=== PATIENT | male | born 1965 | race Caucasian/White ===

== ENCOUNTER 2018-12-01 12:57 | Emergency (ER) | payer MEDICAID ==
[~2018-12-01] VITALS: Wt 70.0 kg
[~2018-12-01 12:57] MED LIST: ASPI81TA52 PO; ATOR-2 PO; AZIT250T PO; BENA40TA56 PO; BENZ-6 PO; CARV25TA79 PO; EZET10TA31 PO; FINA5TAB4 PO; GABA300C16 PO; IBUP800T48 PO; INSU100I27 SQ; METF100010 PO; OMEG-135 PO
[2018-12-01] MEDS ORDERED: morphine 4 MG/ML VIAL IV STA (13:13)
[2018-12-01] MEDS ORDERED: ASPIRIN 325 MG TAB PO STA (13:13)
[2018-12-01] MEDS ORDERED: ONDANSETRON 4 MG INJ IV STA (13:13)
[2018-12-01] MEDS ORDERED: IPRATROPIUM (NEB) 0.5 MG/2.5 ML AMP NEB STA (13:14)
[2018-12-01] MEDS ORDERED: ALBUTEROL 0.083% (NEB) 2.5 MG/3 ML AMP NEB STA (13:14)
--- NOTE | 2018-12-01 13:31 | ERD ---
ER Documentation Chief Complaint Chief Complaint cough and congestion and chest wall pain with blood sugar read hi HPI This is a 53-year-old male that presented to the emergency department complaining of a productive cough, sneezing, pleuritic chest pain for the past 2 weeks. The patient went to an urgent care clinic today for evaluation. The patient has a history of insulin-dependent diabetes mellitus. He states his been compliant with his medications. When he arrived to the clinic the phone 911 given that he complained of chest pain. He states he has no chest pressure that radiates to the neck arm back or jaw. The chest pain is worse when coughing. He denies any recent travel or prolonged immobilization. He indica jo ann last night he had a tactile fever with shaking and chills. He denies any recent hospitalizations. He has no shortness of breath at rest or exertion. He denies any polyuria or polydipsia. EMS indicated the patient's Accu-Chek was 500. They obtained a 12-lead EKG tracing in route that showed ventricular pacing. ROS All systems reviewed and are negative except as per history of present illness. Medications Home Meds Active Scripts Ibuprofen* (Motrin*) 800 Mg Tab, 800 MG PO Q6H PRN for PAIN AND OR ELEVATED TEMP, #30 TAB Prov:CASSIA CRAFT MD 12/01/18 Benzonatate* (Tessalon Perle*) 100 Mg Capsule, 100 MG PO Q8H PRN for COUGH, #20 CAP Prov:CASSIA CRAFT MD 12/01/18 Azithromycin* (Zithromax*) 250 Mg Tablet, 250 MG PO .MichellePACK DIRECTED, #6 TAB TAKE 500 MG (2 TABS) THE FIRST DAY THEN 250 MG (1 TAB) DAYS 2-5 Prov:CASSIA CRAFT MD 12/01/18 Reported Medications Willows-3 Fatty Acids/Fish Oil (Fish Oil 1,000 mg Capsule) 1 Each Capsule, 1 EACH PO BID, CAP 12/01/18 Finasteride* (Finasteride*) 5 Mg Tablet, 5 MG PO DAILY, TAB 12/01/18 Gabapentin* (Gabapentin*) 300 Mg Capsule, 300 MG PO BID, #60 CAP 12/01/18 Benazepril Hcl* (Benazepril Hcl*) 40 Mg Tablet, 40 MG PO DAILY, #30 TAB 12/01/18 Carvedilol* (Carvedilol*) 25 Mg Tablet, 25 MG PO BID, #60 TAB 12/01/18 Ezetimibe* (Zetia*) 10 Mg Tablet, 10 MG PO HS, TAB 12/01/18 Metformin Hcl* (Metformin Hcl*) 1,000 Mg Tablet, 500 MG PO WITH BREAKFAST, #30 TAB 12/01/18 Aspirin (Low Dose Aspirin) 81 Mg Tablet.dr, 81 MG PO DAILY, #30 TAB 12/01/18 Atorvastatin* (Atorvastatin*) 80 Mg Tablet, 80 MG PO QHS, #30 TAB 12/01/18 Insulin Detemir (Levemir Flextouch) 100 Unit/1 Ml Insuln.pen, 24 UNIT SQ QAM, EA 12/01/18 Allergies Allergies: Coded Allergies: No Known Allergy (Unverified , 12/01/18) PMhx/Soc History of Surgery: Yes (Stent, pacemaker) Anesthesia Reaction: No Hx Neurological Disorder: No Hx Respiratory Disorders: No Hx Cardiac Disorders: Yes (HTN) Hx Psychiatric Problems: No Hx Miscellaneous Medical Probl: No Hx Alcohol Use: No Hx Substance Use: No Hx Tobacco Use: No Smoking Status: Never smoker Physical Exam Vitals Vital Signs Date Temp Pulse Resp B/P (MAP) Pulse Ox O2 O2 Flow FiO2 Time Delivery Rate 12/01/18 98.0 75 16 110/75 96 Room Air 17:35 (87) 12/01/18 76 16 119/80 96 Room Air 16:24 (93) 12/01/18 81 20 99 21 14:07 12/01/18 98.2 88 20 146/82 99 13:03 (103) Physical Exam Constitutional:Well-developed. Well-nourished. Patiently actively coughing, g reenish sputum. HEENT:Normocephalic. Atraumatic.Pupils were equal round reactive to light. Moist mucous membranes.No tonsillar exudates. Neck: No nuchal rigidity. No lymphadenopathy. No posterior cervical spine tenderness or step-offs. Respiratory: Not using accessory muscles of respiration.Lungs were clear to auscultation bilaterally. No rhonchi. No rales. Wheezing bilaterally Cardiovascular: Regular rate regular rhythm.No murmurs. No rubs were appreciated.S1, S2 normal. Distal pulses are palpable 2+ bilaterally. Reproducible bilateral chest wall tenderness. No crepitus. No ecchymosis. No flail chest. GI: Abdomen was soft. Nontender. Non Distended. No pulsatile abdominal masses or bruits. No rebound. No guarding. Bowel sounds were present and normal. Muscle skeletal: Full range of motion of both the upper and lower extremities bilaterally.Normal muscle tone.No assymetrical calf tenderness or swelling. Skin: Mild diaphoresis. No petechia, no purpura. No lesions on the palms or the soles of the feet. No maculopapular rash. NEURO: Patient was alert, awake, orientated x3.No facial droop. Gait observed and normal with no ataxia.Speech had regular rate and rhythm. No focal neuro logical deficits. Result Diagram: 12/01/18 1329 12/01/18 1329 Results 24 hrs Laboratory Tests Test 12/01/18 13:29 12/01/18 15:06 12/01/18 17:27 White Blood Count 10.0 10^3/ul Red Blood Count 4.55 10^6/ul Hemoglobin 12.4 g/dl Hematocrit 35.9 % Mean Corpuscular Volume 78.9 fl Mean Corpuscular Hemoglobin 27.3 pg Mean Corpuscular Hemoglobin Concent 34.5 g/dl Red Cell Distribution Width 12.4 % Platelet Count 185 10^3/UL Mean Platelet Volume 10.0 fl Immature Granulocytes % 0.200 % Neutrophils % 69.4 % Lymphocytes % 18.0 % Monocytes % 8.7 % Eosinophils % 3.2 % Basophils % 0.5 % Nucleated Red Blood Cells % 0.0 /100WBC Immature Granulocytes # 0.020 10^3/ul Neutrophils # 7.0 10^3/ul Lymphocytes # 1.8 10^3/ul Monocytes # 0.9 10^3/ul Eosinophils # 0.3 10^3/ul Basophils # 0.1 10^3/ul Nucleated Red Blood Cells # 0.0 10^3/ul Prothrombin Time 12.6 Sec Prothrombin Time Ratio 1.0 INR International Normalized Ratio 0.93 Activated Partial Thromboplast Time 30.3 Sec Sodium Level 135 mmol/L Potassium Level 5.2 mmol/L Chloride Level 99 mmol/L Carbon Dioxide Level 26 mmol/L Anion Gap 10 Blood Urea Nitrogen 22 mg/dl Creatinine 0.83 mg/dl Est Glomerular Filtrat Rate mL/min > 60 mL/min Glucose Level 470 mg/dl Calcium Level 9.1 mg/dl Total Bilirubin 0.6 mg/dl Direct Bilirubin 0.00 mg/dl Indirect Bilirubin 0.6 mg/dl Aspartate Amino Transf (AST/SGOT) 16 IU/L Alanine Aminotransferase (ALT/SGPT) 31 IU/L Alkaline Phosphatase 81 IU/L Creatine Kinase 118 IU/L Creatine Kinase Index 0.8 Creatinine Kinase MB (Mass) 0.89 ng/ml Troponin I < 0.012 ng/ml B-Type Natriuretic Peptide 393 PG/ML Total Protein 7.2 g/dl Albumin 3.8 g/dl Globulin 3.40 g/dl Albumin/Globulin Ratio 1.11 Bedside Glucose 348 mg/dL 181 mg/dL Current Medications Medications Dose Sig/Tony Start Time Status Last (Trade) Ordered Route PRN Stop Time Admin Dose Reason Admin Aspirin 325 mg ONCE STAT 12/01/18 DC 12/01/18 (Aspirin) PO 13:13 12/01/18 13:35 13:15 Morphine 4 mg ONCE STAT 12/01/18 DC 12/01/18 Sulfate IV 13:13 12/01/18 13:35 (morphine) 13:15 Ondansetron 4 mg ONCE STAT 12/01/18 DC 12/01/18 HCl (Zofran IV 13:13 12/01/18 13:35 Inj) 13:15 Albuterol 5 mg ONCE STAT 12/01/18 DC 12/01/18 (Proventil NEB 13:14 12/01/18 14:06 0.083% (Neb)) 13:18 Ipratropium 0.5 mg ONCE STAT 12/01/18 DC 12/01/18 Lambert NEB 13:14 12/01/18 14:06 (Atrovent 13:18 0.02% (Neb)) Benzonatate 200 mg ONCE ONCE 12/01/18 DC 12/01/18 (Tessalon) PO 14:00 12/01/18 14:27 14:02 Insulin 10 unit ONCE STAT 12/01/18 DC 12/01/18 Human SC 14:41 12/01/18 15:10 Lispro 14:58 (Humalog) Procedures/MDM The patient presented to the emergency department complaining of chest pain. My clinical evaluation and workup was to distinguish minor causes of chest pain from acute life threatening cardiopulmonary causes such as myocardial infa rction, pulmonary embolism, aortic dissection, esophageal rupture, cardiac tamponade, The patient was placed on a personnel monitor, continuous pulse oximetry and IV access established by nursing staff. The patient was given intravenous morphine and Zofran for analgesia control. The patient had wheezing on physical exam and therefore did feel was necessary to obtain a chest radiograph as he has no history of wheezing in the past. 12 Lead EKG tracing ordered and reviewed by myself showed: Normal sinus rhythm of 85 bpm and no arrhythmia. OH interval normal. QRS duration 120 ms with ventricular paced rhythm No ST segment elevation No ST segment depression. No changes consistent with acute ischemia. The patient's troponin was within normal limits. Chest radiograph showed no infiltrates or pneumothorax. The patient was given Tessalon Perles which did improve his cough. He was also given intravenous morphine and Zofran for analgesia control. I felt his pain was pleuritic in nature versus result of myocardial ischemia. No risk factors for pulmonary embolism. The patient was also hyperglycemic without ketosis. He received IV fluids in addition to subcutaneous insulin. Observation Note: Time: 4 hours Family Hx: No Hypertension Evaluation: Multiple exams showed improving symptoms and no evidence of pneumonia or severe respiratory distress and the patient will be discharged home with treatment for acute bronchitis. The patient was discharged home in fair condition. They were instructed to return to the emergency department at any time if there was any worsening of their condition. The patient stated they would follow up with their PCP in the next 24-48 hours to initiate a suitable medication regimen under the care of their PCP as well as to allow their PCP to monitor any drug reactions. The patient was discharged home with prescriptions after they gave informed consent to the new medication. They were also fully informed by myself on the adverse effects and adverse drug interactions in order to provide adequate safeguards to prevent possible adverse reactions to medications. The patients chest pain was reproduced by palpation and horizontal flexion of the arms. It was my clinical impression that the pain was a result of inflammation of the skin and subcutaneous structures of the chest wall versus myocardial ischemia. I felt the patient had low-risk chest pain and could therefore be safely discharged with close follow-up. Departure Diagnosis: Primary Impression: Bronchitis Additional Impressions: Costochondritis Hyperglycemia without ketosis Condition: CASSIA Whiteside MD Dec 01, 2018 13:31
[2018-12-01] MEDS ORDERED: BENZONATATE 100 MG CAP PO ONE (14:00)
[2018-12-01] MEDS ORDERED: INSULIN LISPRO 100 UNIT/ML VIAL SC STA (14:41)
[2018-12-01 17:35] VITALS: BP 110/75; PULSE 75; RESP 16
== END 2018-12-01 18:38 | disposition home or self-care (01) ==
LOC: E/R 12:57
DX: J40 Bronchitis, not specified as acute or chronic (principal); M94.0 Chondrocostal junction syndrome [Tietze]; I10 Essential (primary) hypertension; E11.65 Type 2 diabetes mellitus with hyperglycemia; Z79.4 Long term (current) use of insulin; Z79.82 Long term (current) use of aspirin; Z95.0 Presence of cardiac pacemaker; Z98.61 Coronary angioplasty status
CPT/HCPCS: 71045; 80053; 82550; 82553; 82962; 83880; 84484; 85025; 85610; 85730; 93005; 94664; 96372; 96374; 96375; J2270; J2405; Z7502; Z7610